=== PATIENT | male | born 1935 | race Caucasian/White ===

== ENCOUNTER → 2016-09-05 | Outpatient (CLI) | payer OTHER ==
--- NOTE | 2016-09-05 15:34 | DX ---
PA and lateral chest. Clinical History: Paroxysmal nocturnal dyspnea. Comparison Study: None available. Findings: The lungs are clear. No pleural disease identified. Heart size is normal. 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 There is also evidence of deformity of the lateral aspects of the fourth, fifth, and sixth ribs in the posterior aspects of the left sixth, seventh, and eighth ribs.. Findings are most likely secondary to prior trauma, altho ugh a lytic tumor of the third rib is not excluded. Recommend comparison with prior examinations if a vailable. Prior CABG.. Impression: 1. No acute cardiopulmonary abnormality identified. Prior CABG. 2. Abnormal appearance to multiple ribs in the left hemithorax superiorly. There is an expansile lyti c process of the anterior aspect of left third rib which may be secondary to prior trauma, especially given the multiple other healed rib fractures present. However, a bone replacing mass is not exclude d. Recommend comparison with prior examinations, if available..
== END ==
LOC: BRMIMAGING 14:35
PROVIDERS: ATTEND Family Medicine
DX: R06.00 Dyspnea, unspecified (principal); R93.8 Abnormal findings on diagnostic imaging of other specified body structures
CPT/HCPCS: 71020-PO